=== PATIENT | male | born 1960 | race American Indian/Alaskan Native ===

== ENCOUNTER 2016-12-17 17:57 | Emergency (ER) | payer MEDICAID ==
--- NOTE | 2016-12-17 19:19 | EDM.PDOC ---
ED HPI GENERAL MEDICAL PROBLEM - General Chief Complaint: Cardiovascular Problem Stated Complaint: Heart racing Time Seen by Provider: 12/17/16 19:13 Source of Information: Reports: Patient History Limitations: Reports: No Limitations - History of Present Illness INITIAL COMMENTS - FREE TEXT/NARRATIVE: 56 yo M is here for "heart racing". He reports having feeling of heart racing and facial sweating around 3 am this morning that woke him up from sleep. The symptoms are not consistent and have only occurred a couple of times today. He finally decided to come in [facility] to seek medical assistance. He initially thought his symptoms were due to anxiety as reportedly he has had similar symptoms in past but symptoms only last a short duration and are self resolving. He also endorses intermittent nausea, intermittent shortness of breath, and few episodes of non-bloody diarrhea since earlier this morning as well. He denies cough, URI symptoms, recent asthma flare ups, recent albuterol use ( last use was apparently 3-4 years ago), recent medication changes, sick contacts , vomiting, recent medication change, recent travel, drug use, alcohol use, feeling heart burn, rectal bleeding, orthopnea sx, chest pain, abdominal pain, LE edema, dietary changes. During his work up in the ED [facility], his Hb is noted to be 6.4. Per chart review, his Hb about 2 weeks ago in the clinic was 7.8. Upon further questioning , patient reported that he has not had a chance to get EGD or colonoscopy done but it was recommended by his physicians like Dr. Brown. Per [facility] chart review, it appears that patient has not been showing up for his scopes and has been canceling them too. Onset: Today Onset Date: 12/17/16 Onset Time: 03:00 - Related Data Allergies Allergy/AdvReac Type Severity Reaction Status Date / Time cefaclor [From [facility]] Allergy Hives Verified 12/17/16 18:49 Home Meds: Home Meds Escitalopram [Lexapro] 20 mg PO DAILY 12/05/16 [History] Ferrous Sulfate 325 mg PO PCBREAKFAST 12/05/16 [History] Ibuprofen [Motrin] 1 tab PO DAILY 12/05/16 [History] Isosorbide Mononitrate [Isosorbide Mononitrate ER] 30 mg PO DAILY 12/05/16 [ History] Losartan [Cozaar] 1 tab PO DAILY 12/05/16 [History] Metoprolol Succinate [Toprol XL] 100 mg PO DAILY 12/05/16 [History] Mirtazapine [Remeron] 7.5 mg PO BEDTIME 12/05/16 [History] Multivitamin [Multi-Day Vitamins] 1 tab PO DAILY 12/05/16 [History] [place]-3/DHA/Epa/Fish Oil [[place]-3 Fish Oil 1,000 MG Sfgl] 1 cap PO DAILY [History] Omeprazole 20 mg PO DAILY 12/05/16 [History] amLODIPine [Norvasc] 5 mg PO DAILY 12/05/16 [History] traMADol HCl [Tramadol HCl] 1 tab PO TID PRN 12/05/16 [History] Past Medical History Cardiovascular History: Reports: Hypertension Genitourinary History: Reports: Chronic Renal Insuffiency Musculoskeletal History: Reports: Back Pain, Chronic, Osteoarthritis Psychiatric History: Reports: Other (See Below) Other Psychiatric History: alcohol abuse, narcotic abuse Hematologic History: Reports: B12 Deficiency, Iron Deficiency Social & Family History - Tobacco Use Smoking Status *Q: Never Smoker - Recreational Drug Use Recreational Drug Use: No ED ROS GENERAL - Review of Systems Review Of Systems: See Below Constitutional: Reports: Diaphoresis HEENT: Reports: No Symptoms Respiratory: Reports: Shortness of Breath Cardiovascular: Reports: Palpitations GI/Abdominal: Reports: Diarrhea, Nausea : Reports: No Symptoms Musculoskeletal: Reports: No Symptoms Skin: Reports: No Symptoms Neurological: Reports: No Symptoms Psychiatric: Reports: No Symptoms Hematologic/Lymphatic: Reports: Anemia Immunologic: Reports: No Symptoms ED EXAM, GENERAL - Physical Exam Exam: See Below Exam Limited By: No Limitations General Appearance: Alert, No Apparent Distress Ears: Hearing Grossly Normal Throat/Mouth: Normal Inspection, Normal Oropharynx, No Airway Compromise Head: Atraumatic, Normocephalic Neck: Supple Respiratory/Chest: No Respiratory Distress, Lungs Clear, Normal Breath Sounds, No Accessory Muscle Use, Chest Non-Tender Cardiovascular: Normal Peripheral Pulses, Regular Rate, Rhythm, No Edema, No Murmur GI/Abdominal: Normal Bowel Sounds, Soft, Non-Tender, No Distention Rectal (Males) Exam: Heme + Stool (rectal exam: gross blood noted in stool.) Extremities: Normal Range of Motion Neurological: Alert Skin Exam: Warm, Dry, Intact Course - Vital Signs Last Recorded V/S: Last Vital Signs Temp 97.2 F 12/17/16 18:50 Pulse 66 12/17/16 18:50 Resp 16 12/17/16 18:50 BP 114/51 L 12/17/16 18:50 Pulse Ox 99 12/17/16 18:50 - Orders/Labs/Meds Orders: Active Orders 24 hr Category Date Time Status EKG Documentation Completion [RC] URGENT Care 12/17/16 19:05 Active DRUG SCREEN URINE BIORAD [URCHEM] Stat Lab 12/17/16 19:08 Uncollected RED BLOOD CELLS LP [BBK] Stat Lab 12/17/16 19:00 Received TYPE AND SCREEN [BBK] Stat Lab 12/17/16 19:00 Received UA W/MICROSCOPIC [URIN] Stat Lab 12/17/16 19:08 Uncollected Labs: Laboratory Tests 12/17/16 12/17/16 Range/Units 19:00 19:00 WBC 12.0 H (5.0-10.0) 10^3/uL RBC 3.29 L (4.6-6.2) 10^6/uL Hgb 6.4 L* (14.0-18.0) g/dL Hct 22.9 L (40.0-54.0) % MCV 69.6 L (80-100) fL MCH 19.5 L (27.0-34.0) pg MCHC 27.9 L (33.0-35.0) g/dL Plt Count 485 H (150-450) 10^3/uL Neut % (Auto) 69.3 (42.2-75.2) % Lymph % (Auto) 19.4 L (20.5-50.1) % [place] % (Auto) 8.1 H (2-8) % Eos % (Auto) 2.7 (1.0-3.0) % Baso % (Auto) 0.5 (0.0-1.0) % Sodium 139 (135-145) mmol/L Potassium 4.6 (3.6-5.0) mmol/L Chloride 111 (101-111) mmol/L Carbon Dioxide 19.0 L (21.0-31.0) mmol/L Anion Gap 13.6 BUN 26 H (7-18) mg/dL Creatinine 2.5 H (0.6-1.3) mg/dL Est Cr Clr Drug Dosing 35.78 mL/min Estimated GFR (MDRD) 27 BUN/Creatinine Ratio 10.40 Glucose 136 H (74-105) mg/dL Calcium 8.3 L (8.4-10.2) mg/dl Magnesium 2.0 (1.8-2.5) mg/dL Total Bilirubin 0.5 (0.2-1.0) mg/dL AST 18 (10-42) IU/L ALT 18 (10-60) IU/L Alkaline Phosphatase 66 (42-121) IU/L Troponin I < 0.02 (0.00-0.02) ng/ml Total Protein 7.1 (6.7-8.2) g/dl Albumin 3.7 (3.2-5.5) g/dl Globulin 3.4 Albumin/Globulin Ratio 1.09 Amylase 84 (28-100) U/L Lipase 44 (22-51) U/L Meds: Medications Discontinued Medications Generic Name Dose Route Start Last Admin Trade Name Freq PRN Reason Stop Dose Admin Pantoprazole Sodium 80 mg 12/17/16 19:55 Protonix Iv IVPUSH 12/17/16 19:56 .BOLUS ONE Departure - Departure Time of Disposition: 20:09 Disposition: DC/Tfer to Acute Hospital 02 Reason for Transfer *Q: Other (Acute GI bleed.) Condition: Fair Clinical Impression: GI bleed Qualifiers: GI bleed type/associated pathology: unspecified gastrointestinal hemorrhage type Qualified Code(s): K92.2 - Gastrointestinal hemorrhage, unspecified Forms: ED Department Discharge Care Plan Goals: Discussed case and lab results with Dr. Antonio (hospitalist) in [place]. He has graciously accepted the patient onto his service. Due to patient's GI bleed (heme occult positive, decrease in Hb over 2 weeks, and patient being symptomatic), T/S obtained in the ER. 80 mg of IV protonix administered as well. He got transfused 1 unit of PRBCs.
[2016-12-17 19:30] LABS: CHLORIDE,CL 111 mmol/L (101-111); SODIUM,NA 139 mmol/L (135-145)
--- NOTE | 2016-12-17 19:45 | CR ---
Clinical history: 56-year-old male irregular heart rate. Interpretation: Asymmetric elevation right hemidiaphragm with underlying lower lobe atelectasis. Segundo thorax unremarkable and normal cardiac silhouette on this upright AP portable chest. No cephalization of vascular flow, signs of alveolar edema or dependent pleural effusion. No lung mass or hilar lymphadenopathy. CONCLUSION: Normal cardiac silhouette without signs of heart failure. (Elevated right hemidiaphragm with underlying right lower lobe atelectasis)
[2016-12-17] MEDS ORDERED: Pantoprazole 40 MG Vial IVPUSH ONE (19:55)
[2016-12-17 20:37] VITALS: BP 138/63
--- NOTE | 2016-12-22 08:10 | EKG ---
12/17/2016 - MASSIMO CHAN - This 12-lead EKG shows a normal sinus rhythm with a ventricular rate of 66. Normal axis and intervals. No acute ST-segment or T-wave changes. [facility] /[id number]
== END 2016-12-17 20:47 ==
LOC: DL.ED 17:57
DX: K92.2 Gastrointestinal hemorrhage, unspecified (principal); I12.9 Hypertensive chronic kidney disease with stage 1 through stage 4 chronic kidney disease, or unspecified chronic kidney disease; N18.9 Chronic kidney disease, unspecified; M19.90 Unspecified osteoarthritis, unspecified site; Z79.899 Other long term (current) drug therapy; Z88.8 Allergy status to other drugs, medicaments and biological substances
CPT/HCPCS: 36415; 36430; 71010; 80053; 80305; 81001; 82150; 82272; 83690; 83735; 84484; 85025; 86850; 86900; 86901; 86920; 86922; 93005; 96374; 99285; C9113; P9016

== ENCOUNTER 2017-04-05 23:01 | Emergency (ER) | payer MEDICAID ==
[2017-04-05 23:19] VITALS: BP 120/62
--- NOTE | 2017-04-05 23:36 | EDM.PDOC ---
ED HPI GENERAL MEDICAL PROBLEM - General Chief Complaint: Chest Pain Stated Complaint: CHEST PAIN [id number] Time Seen by Provider: 04/05/17 23:33 Source of Information: Reports: Patient History Limitations: Reports: No Limitations - History of Present Illness INITIAL COMMENTS - FREE TEXT/NARRATIVE: c/o sudden onset bilat subcostal chest pain while sitting but went away now. gives h/o heartburns and used to take omeprazole but not now. did eat hot dish prior and didn't think it was spicy. - Related Data Allergies Allergy/AdvReac Type Severity Reaction Status Date / Time cefaclor [From [facility]] Allergy Hives Verified 04/05/17 23:14 Home Meds: Home Meds Escitalopram [Lexapro] 20 mg PO DAILY 12/05/16 [History] Ferrous Sulfate 325 mg PO PCBREAKFAST 12/05/16 [History] Isosorbide Mononitrate [Isosorbide Mononitrate ER] 30 mg PO DAILY 12/05/16 [ History] Losartan [Cozaar] 1 tab PO DAILY 12/05/16 [History] Metoprolol Succinate [Toprol XL] 100 mg PO DAILY 12/05/16 [History] Mirtazapine [Remeron] 7.5 mg PO BEDTIME 12/05/16 [History] Multivitamin [Multi-Day Vitamins] 1 tab PO DAILY 12/05/16 [History] [place]-3/DHA/Epa/Fish Oil [Hen[place]-3 Fish Oil 1,000 MG Sfgl] 1 cap PO DAILY [History] amLODIPine [Norvasc] 5 mg PO DAILY 12/05/16 [History] traMADol HCl [Tramadol HCl] 1 tab PO TID PRN 12/05/16 [History] Past Medical History HEENT History: Reports: None Cardiovascular History: Reports: Hypertension Respiratory History: Reports: None Gastrointestinal History: Reports: None Genitourinary History: Reports: Chronic Renal Insuffiency Musculoskeletal History: Reports: Back Pain, Chronic, Osteoarthritis Neurological History: Reports: None Psychiatric History: Reports: Other (See Below) Other Psychiatric History: alcohol abuse, narcotic abuse Endocrine/Metabolic History: Reports: Other (See Below) Other Endocrine/Metabolic History: boarderline diabetic diet controlled Hematologic History: Reports: B12 Deficiency, Iron Deficiency Immunologic History: Reports: None Oncologic (Cancer) History: Reports: None Dermatologic History: Reports: None - Infectious Disease History Infectious Disease History: Reports: None Social & Family History - Tobacco Use Smoking Status *Q: Never Smoker - Caffeine Use Caffeine Use: Reports: Coffee, Soda, Tea - Recreational Drug Use Recreational Drug Use: No ED ROS GENERAL - Review of Systems Review Of Systems: ROS reveals no pertinent complaints other than HPI. ED EXAM, GENERAL - Physical Exam Exam: See Below Exam Limited By: No Limitations General Appearance: Alert, WD/WN, No Apparent Distress, Other (pain at present) Ears: Hearing Grossly Normal Throat/Mouth: Normal Voice, No Airway Compromise Head: Atraumatic Neck: Supple, Non-Tender Respiratory/Chest: No Respiratory Distress Cardiovascular: Regular Rate, Rhythm GI/Abdominal: Soft, Non-Tender, Other (BS hyper). No: Guarding, Rigid, Rebound , Tender Neurological: Alert, Oriented, Normal Cognition, Normal Gait, No Motor/Sensory Deficits Psychiatric: Normal Affect, Normal Mood Skin Exam: Warm, Dry, Normal Color Lymphatic: No Adenopathy Course - Vital Signs Last Recorded V/S: Last Vital Signs Temp 36.0 C 04/05/17 23:17 Pulse 57 L 04/05/17 23:17 Resp 16 04/05/17 23:17 BP 120/62 04/05/17 23:17 Pulse Ox 98 04/05/17 23:17 - Orders/Labs/Meds Labs: Laboratory Tests 04/05/17 04/05/17 Range/Units 23:18 23:18 WBC 11.9 H (5.0-10.0) 10^3/uL RBC 4.37 L (4.6-6.2) 10^6/uL Hgb 8.2 L D (14.0-18.0) g/dL Hct 29.0 L (40.0-54.0) % MCV 66.4 L D (80-100) fL MCH 18.8 L (27.0-34.0) pg MCHC 28.3 L (33.0-35.0) g/dL Plt Count 569 H D (150-450) 10^3/uL Neut % (Auto) 64.1 (42.2-75.2) % Lymph % (Auto) 20.9 (20.5-50.1) % [place] % (Auto) 7.2 (2-8) % Eos % (Auto) 7.3 H (1.0-3.0) % Baso % (Auto) 0.5 (0.0-1.0) % Sodium 133 L (135-145) mmol/L Potassium 4.0 (3.6-5.0) mmol/L Chloride 105 (101-111) mmol/L Carbon Dioxide 21.0 (21.0-31.0) mmol/L Anion Gap 11.0 BUN 36 H (7-18) mg/dL Creatinine 2.6 H (0.6-1.3) mg/dL Est Cr Clr Drug Dosing 34.41 mL/min Estimated GFR (MDRD) 26 BUN/Creatinine Ratio 13.84 Glucose 99 (74-105) mg/dL Calcium 8.5 (8.4-10.2) mg/dl Total Bilirubin 0.3 (0.2-1.0) mg/dL AST 22 (10-42) IU/L ALT 22 (10-60) IU/L Alkaline Phosphatase 60 (42-121) IU/L Troponin I < 0.02 (0.00-0.02) ng/ml Total Protein 7.6 (6.7-8.2) g/dl Albumin 4.0 (3.2-5.5) g/dl Globulin 3.6 Albumin/Globulin Ratio 1.11 Amylase 77 (28-100) U/L Lipase 49 (22-51) U/L - Re-Assessments/Exams Free Text/Narrative Re-Assessment/Exam: 04/06/17 00:01 results discussed with pt who remains pain & discomfort free. prefers home. Departure - Departure Time of Disposition: 00:02 Disposition: Home, Self-Care 01 Condition: Good Clinical Impression: GERD (gastroesophageal reflux disease) Qualifiers: Esophagitis presence: without esophagitis Qualified Code(s): K21.9 - Gastro- esophageal reflux disease without esophagitis Instructions: Food Choices for Gastroesophageal Reflux Disease, Adult Forms: ED Department Discharge Additional Instructions: 1) rest and avoid bending lifting straining 2) don't sleep flat at night 3) recheck if there is any change or concern
[2017-04-05 23:50] LABS: CHLORIDE,CL 105 mmol/L (101-111); SODIUM,NA 133 mmol/L (135-145)
--- NOTE | 2017-04-13 18:43 | EKG ---
04/05/2017 - MASSIMO CHAN - FINDINGS: This 12-lead EKG shows a sinus bradycardia with a ventricular rate of 55. Normal axis and intervals. No acute ST-segment or T-wave changes. There are nonspecific T abnormalities in lateral leads. [facility] /[id number]
== END 2017-04-06 00:14 | disposition home or self-care (01) ==
LOC: DL.ED 23:01
DX: K21.9 Gastro-esophageal reflux disease without esophagitis (principal); I12.9 Hypertensive chronic kidney disease with stage 1 through stage 4 chronic kidney disease, or unspecified chronic kidney disease; N18.9 Chronic kidney disease, unspecified; Z88.1 Allergy status to other antibiotic agents; Z79.899 Other long term (current) drug therapy
CPT/HCPCS: 36415; 71010; 80053; 82150; 83690; 84484; 85025; 93005; 99285

== ENCOUNTER 2018-09-19 13:03 | Emergency (ER) | payer MEDICAID ==
[2018-09-19] MEDS ORDERED: Aspirin 81 MG Tab.Chew PO ONE (13:20)
[2018-09-19] MEDS ORDERED: Nitroglycerin 0.4 MG Tab.SL SL PRN (13:20)
[2018-09-19] MEDS ORDERED: Sodium Chloride 0.9% 10 ML Syringe FLUSH PRN (13:21)
[2018-09-19 14:02] LABS: ANION GAP 12.8; CHLORIDE,CL 105 mmol/L (101-111); SODIUM,NA 134 mmol/L (135-145)
--- NOTE | 2018-09-19 14:42 | EDM.PDOC ---
Scribed by Monique Pedersen 09/19/18 [id number] for Forrest Abebe MD ED HPI GENERAL MEDICAL PROBLEM - General Chief Complaint: Cardiovascular Problem Stated Complaint: HEART PROBLEMS- LEFT ARM SORE Time Seen by Provider: 09/19/18 13:20 Source of Information: Reports: Patient, RN, RN Notes Reviewed History Limitations: Reports: No Limitations - History of Present Illness INITIAL COMMENTS - FREE TEXT/NARRATIVE: Patient presents to ER with his heart skipping, chest pain and shortness of breath with exertion times one week. He has not taken aspirin or nitro. Pt states he has similar symptoms several years ago and had a cardiac work up which showed palpitations only, and he was prescribed Metoprolol which he has taken every since that time. Pt denies syncope, near syncope, edema, or orthopnea. The symptoms have been constant x1 week. Duration: Week(s): (1) Location: Reports: Chest Quality: Reports: Ache, Pressure Severity: Mild Improves with: Reports: None Worsens with: Reports: Other (Exertion) Associated Symptoms: Reports: No Other Symptoms - Related Data Allergies Allergy/AdvReac Type Severity Reaction Status Date / Time cefaclor [From [facility]] Allergy Hives Verified 04/05/17 23:14 Home Meds: Home Meds Escitalopram [Lexapro] 20 mg PO DAILY 12/05/16 [History] Ferrous Sulfate 325 mg PO PCBREAKFAST 12/05/16 [History] Isosorbide Mononitrate [Isosorbide Mononitrate ER] 30 mg PO DAILY 12/05/16 [ History] Losartan [Cozaar] 1 tab PO DAILY 12/05/16 [History] Metoprolol Succinate [Toprol XL] 100 mg PO DAILY 12/05/16 [History] Mirtazapine [Remeron] 7.5 mg PO BEDTIME 12/05/16 [History] Multivitamin [Multi-Day Vitamins] 1 tab PO DAILY 12/05/16 [History] [place]-3/DHA/Epa/Fish Oil [[place]-3 Fish Oil 1,000 MG Sfgl] 1 cap PO DAILY [History] amLODIPine [Norvasc] 5 mg PO DAILY 12/05/16 [History] traMADol HCl [Tramadol HCl] 1 tab PO TID PRN 12/05/16 [History] Past Medical History HEENT History: Reports: None Cardiovascular History: Reports: Hypertension, Other (See Below) (Palpitations) Respiratory History: Reports: None Gastrointestinal History: Reports: None Genitourinary History: Reports: Chronic Renal Insuffiency Musculoskeletal History: Reports: Back Pain, Chronic, Osteoarthritis Neurological History: Reports: None Psychiatric History: Reports: Other (See Below) Other Psychiatric History: alcohol abuse, narcotic abuse Endocrine/Metabolic History: Reports: Other (See Below) Other Endocrine/Metabolic History: boarderline diabetic diet controlled Hematologic History: Reports: B12 Deficiency, Iron Deficiency Immunologic History: Reports: None Oncologic (Cancer) History: Reports: None Dermatologic History: Reports: None - Infectious Disease History Infectious Disease History: Reports: None Social & Family History - Family History Family Medical History: Noncontributory - Caffeine Use Caffeine Use: Reports: Coffee, Soda, Tea - Living Situation & Occupation Living situation: Reports: with Family ED ROS GENERAL - Review of Systems Review Of Systems: ROS reveals no pertinent complaints other than HPI. ED EXAM, GENERAL - Physical Exam Exam: See Below Exam Limited By: No Limitations General Appearance: Alert, WD/WN, No Apparent Distress Eye Exam: Bilateral Eye: Normal Inspection Nose: Normal Inspection Throat/Mouth: Normal Inspection, Normal Lips, Normal Teeth, Normal Gums, Normal Oropharynx, Normal Voice, No Airway Compromise Head: Atraumatic, Normocephalic Neck: Normal Inspection, Supple, Non-Tender, Full Range of Motion Respiratory/Chest: No Respiratory Distress, Lungs Clear, Normal Breath Sounds, No Accessory Muscle Use, Chest Non-Tender Cardiovascular: Normal Peripheral Pulses, Regular Rate, Rhythm, No Edema, No Gallop, No JVD, No Murmur, No Rub GI/Abdominal: Normal Bowel Sounds, Soft, Non-Tender, No Organomegaly, No Distention, No Abnormal Bruit, No Mass Back Exam: Normal Inspection Extremities: Normal Inspection, Normal Range of Motion, Non-Tender, No Pedal Edema, Normal Capillary Refill Neurological: Alert, Oriented, CN II-XII Intact, Normal Cognition, Normal Gait, No Motor/Sensory Deficits Psychiatric: Normal Affect, Normal Mood Skin Exam: Warm, Dry, Intact, Normal Color, No Rash EKG INTERPRETATION EKG Date: 09/19/18 Time: 13:21 Rhythm: Other (sinus rhythm) Rate (Beats/Min): 69 [place]: Normal P-Wave: Present QRS: Normal ST-T: Normal QT: Normal Comparison: NA - No Prior EKG Course - Orders/Labs/Meds Orders: Active Orders 24 hr Category Date Time Status EKG 12 Lead [EKG Documentation Completion] [] STAT Care 09/19/18 13:21 Active Peripheral IV Care [RC] . DIRECTED Care 09/19/18 13:21 Active Nitroglycerin [Nitrostat] Med 09/19/18 13:20 Active 0.4 mg SL Q5M PRN Sodium Chloride 0.9% [Saline Flush] Med 09/19/18 13:21 Active 10 ml FLUSH ASDIRECTED PRN Peripheral IV Insertion Adult [OM.PC] Stat Oth 09/19/18 13:21 Ordered Medication Orders Nitroglycerin (Nitrostat) 0.4 mg SL Q5M PRN PRN Reason: Chest Pain Sodium Chloride (Saline Flush) 10 ml FLUSH ASDIRECTED PRN PRN Reason: Keep Vein Open Last Admin: 09/19/18 13:30 Dose: 10 ml Labs: Laboratory Tests 09/19/18 09/19/18 09/19/18 Range/Units 13:29 13:29 13:29 WBC 10.2 H (5.0-10.0) 10^3/uL RBC 4.61 (4.6-6.2) 10^6/uL Hgb 11.3 L D (14.0-18.0) g/dL Hct 36.0 L (40.0-54.0) % MCV 78.1 L D (80-100) fL MCH 24.5 L (27.0-34.0) pg MCHC 31.4 L (33.0-35.0) g/dL Plt Count 345 D (150-450) 10^3/uL Neut % (Auto) 64.6 (42.2-75.2) % Lymph % (Auto) 20.1 L (20.5-50.1) % [place] % (Auto) 7.0 (2-8) % Eos % (Auto) 7.9 H (1.0-3.0) % Baso % (Auto) 0.4 (0.0-1.0) % PT 10.1 (9.0-12.0) SEC INR 1.0 (0.9-1.2) APTT 26.1 (22.0-34.0) SEC D-Dimer, Quantitative < 100 (0-400) ng/mL Sodium 134 L (135-145) mmol/L Potassium 3.8 (3.6-5.0) mmol/L Chloride 105 (101-111) mmol/L Carbon Dioxide 20.0 L (21.0-31.0) mmol/L Anion Gap 12.8 BUN 16 (7-18) mg/dL Creatinine 1.3 D (0.6-1.3) mg/dL Est Cr Clr Drug Dosing TNP Estimated GFR (MDRD) 57 BUN/Creatinine Ratio 12.30 Glucose 205 H (74-105) mg/dL Calcium 8.8 (8.4-10.2) mg/dl Total Bilirubin 0.5 (0.2-1.0) mg/dL AST 40 (10-42) IU/L ALT 26 (10-60) IU/L Alkaline Phosphatase 72 (42-121) IU/L Troponin I < 0.02 (0.00-0.02) ng/ml Total Protein 7.1 (6.7-8.2) g/dl Albumin 3.8 (3.2-5.5) g/dl Globulin 3.3 Albumin/Globulin Ratio 1.15 Meds: Medications Generic Name Dose Route Start Last Admin Trade Name Freq PRN Reason Stop Dose Admin Nitroglycerin 0.4 mg 09/19/18 13:20 Nitrostat SL Q5M PRN Chest Pain Sodium Chloride 10 ml 09/19/18 13:21 09/19/18 13:30 Saline Flush FLUSH 10 ml ASDIRECTED PRN Administration Keep Vein Open Discontinued Medications Generic Name Dose Route Start Last Admin Trade Name Freq PRN Reason Stop Dose Admin Aspirin 324 mg 09/19/18 13:20 09/19/18 13:29 Aspirin PO 09/19/18 13:21 324 mg ONETIME ONE Administration - Radiology Interpretation Free Text/Narrative:: XR Chest: no acute process, see Rad. report. Departure - Departure Time of Disposition: 14:39 Disposition: Home, Self-Care 01 Condition: Good Clinical Impression: Palpitations, Atypical chest pain Instructions: Palpitations, Nonspecific Chest Pain, [id number] Forms: ED Department Discharge Additional Instructions: Follow up in clinic this week for recheck and consideration for a cardiac event monitor and cardiac stress test. Return to ER if worse at any time. - My Orders Last 24 Hours: My Active Orders 09/19/18 13:20 Nitroglycerin [Nitrostat] 0.4 mg SL Q5M PRN 09/19/18 13:21 EKG 12 Lead [EKG Documentation Completion] [RC] STAT Peripheral IV Care [RC] . DIRECTED Sodium Chloride 0.9% [Saline Flush] 10 ml FLUSH ASDIRECTED PRN Peripheral IV Insertion Adult [OM.PC] Stat - Assessment/Plan Last 24 Hours: My Active Orders 09/19/18 13:20 Nitroglycerin [Nitrostat] 0.4 mg SL Q5M PRN 09/19/18 13:21 EKG 12 Lead [EKG Documentation Completion] [RC] STAT Peripheral IV Care [RC] . DIRECTED Sodium Chloride 0.9% [Saline Flush] 10 ml FLUSH ASDIRECTED PRN Peripheral IV Insertion Adult [OM.PC] Stat I have read and agree with the documentation that has been completed regarding this visit. By signing this record, I attest that the documentation was completed in my physical presence and is an accurate record of the encounter.
[2018-09-20 17:04] VITALS: BP 152/80
== END 2018-09-19 14:55 | disposition home or self-care (01) ==
LOC: DL.ED 13:03
DX: R07.89 Other chest pain (principal); R00.2 Palpitations; I12.9 Hypertensive chronic kidney disease with stage 1 through stage 4 chronic kidney disease, or unspecified chronic kidney disease; N18.9 Chronic kidney disease, unspecified; Z88.1 Allergy status to other antibiotic agents; Z79.899 Other long term (current) drug therapy
CPT/HCPCS: 36415; 71045; 80053; 84484; 85025; 85379; 85610; 85730; 93005; 99285; A9270

== ENCOUNTER 2019-12-14 14:23 | Emergency (ER) | payer MEDICAID ==
[2019-12-14 14:46] VITALS: BP 119/40; PULSE 58
== END 2019-12-14 15:06 | disposition home or self-care (01) ==
LOC: DL.ED 14:23
DX: Z53.21 Procedure and treatment not carried out due to patient leaving prior to being seen by health care provider (principal)
CPT/HCPCS: 82962

== ENCOUNTER 2020-01-04 09:36 | Emergency (ER) | payer MEDICAID ==
[2020-01-04 09:50] VITALS: BP 126/76; PULSE 110
== END 2020-01-04 13:45 | disposition left against medical advice (07) ==
LOC: DL.ED 09:36
DX: Z53.21 Procedure and treatment not carried out due to patient leaving prior to being seen by health care provider (principal)

== ENCOUNTER 2022-05-11 09:41 | Inpatient (IN) | payer MEDICARE, MEDICAID ==
[2022-05-11] MEDS ORDERED: Ondansetron 4 MG/2 ML SDV IVPUSH ONE (10:11)
[2022-05-11] MEDS ORDERED: MVI, Adult with Vitamin K 10 ML, Thiamine 100 MG, Folic Acid 1 MG in Lactated Ringers 1... IV ONE ×4 (10:11)
[2022-05-11 10:54] LABS: ANION GAP 15.5 mEq/L (7-13)
[2022-05-11] MEDS ORDERED: Sodium Chloride 0.9% 1,000 ML IV ONE (11:01)
[2022-05-11] MEDS ORDERED: Sodium Chloride 0.9% 10 ML Syringe FLUSH PRN (13:46)
[2022-05-11] MEDS ORDERED: cloNIDine 0.1 MG Tab PO PRN (13:46)
[2022-05-11] MEDS ORDERED: Albuterol/Ipratropium 3.0-0.5 MG/3 ML Neb Soln NEB PRN (13:46)
[2022-05-11] MEDS ORDERED: LORazepam 0.5 MG Tab PO PRN (13:46)
[2022-05-11] MEDS ORDERED: Haloperidol Lactate 5 MG/ML SDV IM PRN (13:46)
[2022-05-11 13:48] LABS: AMPHETAMINES,URINE NEGATIVE (NEGATIVE); BARBITURATES,URINE NEGATIVE (NEGATIVE); BENZODIAZEPINE,URINE NEGATIVE (NEGATIVE); MDMA (ECSTASY), URINE NEGATIVE (NEGATIVE); METHADONE,URINE NEGATIVE (NEGATIVE); METHAMPHETAMINES,URINE NEGATIVE (NEGATIVE); OPIATES,URINE NEGATIVE (NEGATIVE); OXYCODONE,URINE NEGATIVE (NEGATIVE); PHENCYCLIDINE,URINE NEGATIVE (NEGATIVE); TCA,URINE NEGATIVE (NEGATIVE)
[2022-05-11] MEDS ORDERED: Metoprolol Tartrate 5 MG/5 ML SDV IVPUSH PRN (13:58)
[2022-05-11] MEDS ORDERED: hydrALAZINE 20 MG/ML SDV IVPUSH PRN (13:58)
[2022-05-11] MEDS ORDERED: Melatonin 3 MG Tab PO PRN (14:01)
[2022-05-11] MEDS ORDERED: LORazepam 2 MG/ML SDV IVPUSH PRN (14:04)
[2022-05-11] MEDS ORDERED: Flumazenil 0.1 MG/ML 5 ML MDV IVPUSH PRN (14:04)
[2022-05-11] MEDS: Ondansetron 4 MG/2 ML SDV IVPUSH PRN (14:41)
[2022-05-11] MEDS ORDERED: 50% Dextrose in Water 50 ML Syringe IVPUSH PRN (17:40)
[2022-05-11] MEDS ORDERED: Glucagon,Human Recombinant 1 MG Vial IM PRN (17:40)
[2022-05-11] MEDS ORDERED: Dextrose 5%-0.9% NaCl 1,000 ML IV SCH (19:30)
[2022-05-11] MEDS: Insulin Lispro 100 Units/ML 3 ML Vial SUBCUT SCH (19:40)
[2022-05-11] MEDS: HYDROmorphone 0.5 MG/0.5 ML Syringe IVPUSH PRN (19:43)
[2022-05-11] MEDS: LORazepam 2 MG/ML SDV IV PRN (21:47)
[2022-05-11] MEDS: Sodium Chloride 0.9% 10 ML Syringe FLUSH SCH (23:01)
[2022-05-12] MEDS: Insulin Lispro 100 Units/ML 3 ML Vial SUBCUT SCH ×4 (00:50→17:39)
[2022-05-12] MEDS: Ondansetron 4 MG/2 ML SDV IVPUSH PRN (00:50)
[2022-05-12] MEDS: LORazepam 2 MG/ML SDV IV PRN ×2 (00:52→08:12)
[2022-05-12 06:38] LABS: ANION GAP 9.8 mEq/L (7-13)
[2022-05-12] MEDS: HYDROmorphone 0.5 MG/0.5 ML Syringe IVPUSH PRN ×2 (08:10→10:18)
[2022-05-12] MEDS ORDERED: Folic Acid 1 MG Tab PO SCH (09:00)
[2022-05-12] MEDS ORDERED: Thiamine 100 MG Tab PO SCH (09:00)
[2022-05-12] MEDS ORDERED: Metoprolol Succinate 50 MG Tab.ER PO SCH (09:00)
[2022-05-12] MEDS ORDERED: Multivitamin Tab PO SCH (09:00)
[2022-05-12] MEDS: Sodium Chloride 0.9% 10 ML Syringe FLUSH SCH (09:18)
[2022-05-12] MEDS ORDERED: Acetaminophen/HYDROcodone 325-5 MG Tab PO PRN (14:33)
== END 2022-05-12 18:02 | disposition home or self-care (01) | DRG 896 ==
LOC: DL.ED 09:41 → DL.MS 13:30 → MERGE 13:30
PROVIDERS: ADMIT Internal Medicine; ATTEND Internal Medicine
DX: F10.229 Alcohol dependence with intoxication, unspecified (principal); K85.20 Alcohol induced acute pancreatitis without necrosis or infection; F10.920 Alcohol use, unspecified with intoxication, uncomplicated; I10 Essential (primary) hypertension; F12.90 Cannabis use, unspecified, uncomplicated; E87.20 Acidosis, unspecified; N17.9 Acute kidney failure, unspecified; K29.20 Alcoholic gastritis without bleeding; F10.288 Alcohol dependence with other alcohol-induced disorder; K70.10 Alcoholic hepatitis without ascites; D69.59 Other secondary thrombocytopenia; E11.65 Type 2 diabetes mellitus with hyperglycemia; E88.09 Other disorders of plasma-protein metabolism, not elsewhere classified; K76.0 Fatty (change of) liver, not elsewhere classified; E66.9 Obesity, unspecified; N18.30 Chronic kidney disease, stage 3 unspecified; E86.0 Dehydration; K21.9 Gastro-esophageal reflux disease without esophagitis; D50.9 Iron deficiency anemia, unspecified; M10.9 Gout, unspecified; E53.8 Deficiency of other specified B group vitamins; M54.9 Dorsalgia, unspecified; G89.29 Other chronic pain; M19.90 Unspecified osteoarthritis, unspecified site; I12.9 Hypertensive chronic kidney disease with stage 1 through stage 4 chronic kidney disease, or unspecified chronic kidney disease; E11.22 Type 2 diabetes mellitus with diabetic chronic kidney disease; Z68.30 Body mass index [BMI] 30.0-30.9, adult; Z88.1 Allergy status to other antibiotic agents; Z79.4 Long term (current) use of insulin; Z79.899 Other long term (current) drug therapy
CPT/HCPCS: 36415; 74176; 76705; 80053; 80305-QW; 80307; 81001; 82150; 82947; 83605; 83690; 83735; 85025; 85610; 85651; 86140; 96361; 96365; 96375; 99222; 99238; 99285; 99285-25; A9270-GY; J1170; J1815-GY; J2060; J2405; J3411; J3490; J7030; J7042; J7120